=== PATIENT | female | born 1985 | race Caucasian/White ===

== ENCOUNTER 2017-02-19 01:18 | Emergency (ER) | payer MEDICAID, OTHER, SELFPAY ==
[~2017-02-19] VITALS: Ht 167.6 cm; Wt 119.3 kg
[2017-02-19 01:24] VITALS: BP 158/106
[2017-02-19] MEDS ORDERED: VENL150C PO (01:32)
== END 2017-02-19 01:57 | disposition home or self-care (01) ==
LOC: ED 01:40
DX: F32.9 Major depressive disorder, single episode, unspecified (principal); Z76.0 Encounter for issue of repeat prescription; F17.210 Nicotine dependence, cigarettes, uncomplicated
CPT/HCPCS: 99283

== ENCOUNTER 2020-02-14 14:10 | Emergency (ER) | payer SELFPAY ==
[~2020-02-14] VITALS: Ht 167.6 cm; Wt 124.2 kg
[~2020-02-14 14:10] MED LIST: VENL150C PO
[2020-02-14 14:16] VITALS: BP 148/85
== END 2020-02-14 14:58 | disposition home or self-care (01) ==
LOC: ED 14:35
DX: F32.9 Major depressive disorder, single episode, unspecified (principal); F17.210 Nicotine dependence, cigarettes, uncomplicated; Z76.0 Encounter for issue of repeat prescription
CPT/HCPCS: 99281; 99406

== ENCOUNTER 2021-05-01 18:25 | Emergency (ER) | payer BC ==
[~2021-05-01] VITALS: Ht 167.6 cm; Wt 122.0 kg
[2021-05-01 19:10] VITALS: BP 166/92
--- NOTE | 2021-05-01 19:26 | NUR ---
Patient given discharge instructions and they have confirmed that they understand the instructions. Patient ambulatory with steady gait. NAD, all questions answered appropriately, denies additional needs at this time. No personal belongings left in room after discharge.
== END 2021-05-01 19:27 | disposition home or self-care (01) ==
LOC: ED 18:35
DX: F32.5 Major depressive disorder, single episode, in full remission (principal); Z76.0 Encounter for issue of repeat prescription
CPT/HCPCS: 99281